=== PATIENT | female | born 1965 ===

== ENCOUNTER → 2021-04-14 | Emergency (ER) | payer MEDICAID ==
[~2021-04-14] VITALS: Ht 167.6 cm; Wt 72.7 kg
[~2021-04-14] MED LIST: acetaminophen 325mg tablet PO ONE; ketorolac tromethamine 15mg/ml inj. IM ONE; orphenadrine citrate 60mg/2ml inj. IM ONE
[2021-04-14 12:53] VITALS: BP 172/103
--- NOTE | 2021-04-14 13:00 | NUR ---
ONCE TONY JORDAN EVALUATED THE PATIENT SHE STOPPED CRYING AND SCREAMING.
--- NOTE | 2021-04-14 13:20 | NUR ---
AFTER RECEIVING HER MEDICATION, PATIENT JUMPED UP OFF THE BED AND STRTED WALKING OUT. I TOLD HER THAT THE DOCTOR WANTED SOME RADIOLOGIC STUDIES AND THE PATIENT STATED "SO DID [facility]". SHE STATED "I GOT MY MEDICATIONS AND NOW I AM GOING" TONY JORDAN AWARE THAT PATIENT IS LEAVING AMA. PATIENT REFUSED TO SIGN AMA FORM. PATIENT WAS TOLD THAT HER CONDITION COULD RESULT IN PARALYSIS OR . PATIENT STATED "OK, IM STILL LEAVING" PATIENT AMBULATED WNL OUT OF ER WITH HER DAUGHTER WITH HER.
== END | disposition left against medical advice (07) ==
LOC: ER 11:29
DX: M54.31 Sciatica, right side (principal); G89.29 Other chronic pain; M79.604 Pain in right leg; R20.0 Anesthesia of skin; Z88.5 Allergy status to narcotic agent
CPT/HCPCS: 96372; 99284; J1885; J2360